=== PATIENT | female | born 1995 | race Hispanic/Latino ===

== ENCOUNTER 2018-01-30 17:56 | Emergency (ER) | payer OTHER ==
[~2018-01-30] VITALS: Ht 160 cm; Wt 50.8 kg
[2018-01-30] MEDS ORDERED: SODIUM CHLORIDE 0.9% 1000ML 1,000 ML IV STA (18:22)
[2018-01-30 18:54] LABS: BILIRUBIN,URINE NEGATIVE (NEGATIVE); CLARITY,URINE CLEAR (CLEAR); COLOR,URINE YELLOW (YELLOW); KETONES,URINE NEGATIVE (NEGATIVE); LEUKOCYTE ESTERASE ,URINE NEGATIVE (NEGATIVE); NITRITE,URINE NEGATIVE (NEGATIVE); PROTEIN,URINE DIPSTICK NEGATIVE (NEGATIVE); URINE UROBILINOGEN 0.2 mg/dL (0.2 - 1)
[2018-01-30 19:05] LABS: BACTERIA,URINE MODERATE /HPF; EPITHELIAL CELLS,URINE MODERATE /LPF; MUCUS,URINE FEW (RARE); RBC,URINE 0-5 /HPF (0-5)
--- NOTE | 2018-01-30 19:49 | Diagnostic Imaging Report ---
EXAM: US OB SEAMAN 1 OR MORE FETUSES DATE: 01/30/2018 INDICATION: Single IUP, check fhr, biometric COMPARISON: None TECHNIQUE: Transabdominal and transvaginal evaluation of the pelvis was performed in the transverse and longitudinal planes. CLINICAL HISTORY: 22 year old A0; last menstrual period: Unsure. Type of Gestation: [place] GA by LMP: ? GA by current U/S: 18w 4d Measurements: BPD 4.1 mm 18w 4d HC 15.05 mm 18w 1d AC 13.04 mm 18w 4d FL 2.89 mm 18w 6d Estimated Weight: 250.65 g, 41.6% [place] Visualized Anatomy: Four chamber cardiac view Regular cardiac rhythm Kidneys No evidence of placental previa. There is no funneling of the internal os. size is appropriate for gestational age. Position: Breech Placental Location: Anterior Cervical Length: 3.1 cm Amniotic Fluid Index: 10.7 cm Heart Rate: 142 bpm IMPRESSION: Single living intrauterine without abnormality identified. Sonographic gestational age estimated at 18 weeks, 4 days +/- 1 week and 2 days. Recommend follow-up nonemergent obstetric ultrasound for anatomy evaluation if not yet performed. Signed by: Dr. Riccardo Ewing M.D. on 01/30/2018 7:46 PM
[2018-01-30 22:46] LABS: BASOPHILS % 0.3 % (0.0-1.0); EOSINOPHILS # (AUTO) 0.1 (0.0-0.4); EOSINOPHILS % 0.8 % (0.0-6.0); HEMATOCRIT 30.5 % (34.2-44.1); HEMOGLOBIN 10.5 g/dL (12.0-16.0); LYMPHOCYTES # (AUTO) 2.2 (1.0-3.2); LYMPHOCYTES % 22.2 % (18.0-39.1); MEAN CORPUSCULAR HEMOGLOBIN 33.9 pg (28-32); MEAN CORPUSCULAR HGB CONC 34.4 g/dL (31-35); MEAN CORPUSCULAR VOLUME 98.4 fL (81-99); MONOCYTES # (AUTO) 0.6 (0.2-0.8); MONOCYTES % 6.3 % (4.4-11.3); NEUTROPHILS # (AUTO) 6.8 (2.1-6.9); NEUTROPHILS % 69.8 % (38.7-80.0); PLATELET COUNT 233 x10e3/uL (140-360); RED CELL DISTRIBUTION WIDTH 12.4 % (11.7-14.4)
[2018-01-30 23:02] LABS: ANION GAP 13.5 mmol/L (8-16); BLOOD UREA NITROGEN 6 mg/dL (7-26); BUN/CREATININE RATIO 12 (6-25); CALCIUM 9.4 mg/dL (8.4-10.2); CARBON DIOXIDE 21 mmol/L (22-29); CHLORIDE 105 mmol/L (98-107); CREATININE, SERUM 0.52 mg/dL (0.57-1.11); EST GLOMERULAR FILTRATION RATE > 60 ML/MIN (60-); GLUCOSE 90 mg/dL (74-118); POTASSIUM 3.5 mmol/L (3.5-5.1); SODIUM 136 mmol/L (136-145)
[2018-01-30 23:28] LABS: HCG,QUANTITATIVE 36357.09 mIU/mL (0-10)
[2018-01-30] MEDS ORDERED: MACROBID 100 M100 MG PO (23:53)
[2018-01-31 04:37] VITALS: BP 112/70
== END 2018-01-31 00:24 | disposition home or self-care (01) ==
LOC: ER 17:56
DX: O26.91 Pregnancy related conditions, unspecified, first trimester (principal); O23.11 Infections of bladder in pregnancy, first trimester; N30.91 Cystitis, unspecified with hematuria; R10.30 Lower abdominal pain, unspecified
CPT/HCPCS: 36415; 76815; 80048; 81001; 84702; 85025; 86900; 87086; 99283